=== PATIENT | female | born 1945 | race Two or more races ===

== ENCOUNTER 2017-12-30 11:48 | Emergency (ER) | payer OTHER ==
[~2017-12-30] VITALS: Ht 157.5 cm; Wt 54.4 kg
[2017-12-30] MEDS ORDERED: LOSARTAN POTASS25 MG (12:13)
== END 2017-12-30 18:00 | disposition home or self-care (01) ==
LOC: ER 11:48
DX: I16.0 Hypertensive urgency (principal); I10 Essential (primary) hypertension; R51 Headache

== ENCOUNTER 2020-03-03 08:25 | Emergency (ER) | payer OTHER ==
[~2020-03-03] VITALS: Ht 157.5 cm; Wt 58.1 kg
[~2020-03-03 08:25] MED LIST: LOSARTAN POTASS25 MG
[2020-03-03] MEDS ORDERED: LIPITOR20 MG (08:35)
[2020-03-03] MEDS ORDERED: AMLODIPINE BESYL5 MG (08:35)
[2020-03-03] MEDS ORDERED: LAMICTAL25 MG (08:36)
[2020-03-03] MEDS ORDERED: ABANEU-SL TABL1 EACH (08:36)
[2020-03-03] MEDS ORDERED: TOPROL XL25 M1 (08:37)
[2020-03-03] MEDS ORDERED: PLAVIX75 MG (08:37)
[2020-03-03] MEDS ORDERED: MEDI-MECLIZINE25 MG PO (14:28)
[2020-03-03] MEDS ORDERED: METOCLOPRAMIDE10 MG PO (14:28)
== END 2020-03-03 16:20 | disposition home or self-care (01) ==
LOC: ER 08:25
DX: H81.12 Benign paroxysmal vertigo, left ear (principal); Z03.818 Encounter for observation for suspected exposure to other biological agents ruled out

== ENCOUNTER 2022-03-09 16:54 | Emergency (ER) | payer OTHER ==
[~2022-03-09] VITALS: Ht 157.5 cm; Wt 56.7 kg
[~2022-03-09 16:54] MED LIST changes: +ABANEU-SL TABL1 EACH; +AMLODIPINE BESYL5 MG; +LAMICTAL25 MG; +LIPITOR20 MG; +MEDI-MECLIZINE25 MG PO; +METOCLOPRAMIDE10 MG PO; +PLAVIX75 MG; +TOPROL XL25 M1
[2022-03-09] MEDS ORDERED: ASPIRIN LOW DOSE 81M (17:22)
[2022-03-09] MEDS ORDERED: CLOPIDOGREL BIS75 MG PO (17:22)
[2022-03-09] MEDS ORDERED: SIMVASTATIN20 MG PO (17:23)
[2022-03-09] MEDS ORDERED: CALTRATE 600+D1 EAC1 PO (17:23)
== END 2022-03-09 20:57 | disposition home or self-care (01) ==
LOC: ER 16:54
DX: G45.9 Transient cerebral ischemic attack, unspecified (principal); Z86.73 Personal history of transient ischemic attack (TIA), and cerebral infarction without residual deficits